=== PATIENT | female | born 1935 | race Caucasian/White ===

== ENCOUNTER → 2019-08-08 09:28 | Outpatient (CLI) | payer OTHER, SELFPAY ==
[2019-08-08 10:26] LABS: Add Manual Diff / Slide Review NO; Basophils Absolute Auto 100 /uL (0-100); Basophils Percent Auto 1.2 % (0-2); Eosinophils Absolute Auto 200 /uL (0-450); Eosinophils Percent Auto 3.1 % (2-4); Hematocrit 39.9 % (36-46); Hemoglobin 13.9 g/dL (12.0-16.0); Lymphocytes Absolute Auto 1500 /uL (1100-4500); Lymphocytes Percent Auto 22.5 % (25-40); Mean Corpuscular HGB Conc 34.8 % (30-36); Mean Corpuscular Hemoglobin 31.3 PG (26-34); Monocytes Absolute Auto 600 /uL (0-900); Monocytes Percent Auto 8.7 % (3-14); Neutrophils Absolute Auto 4300 /uL (1500-7000); Neutrophils Percent Auto 64.5 % (50-75); Platelet Count 186 X10^3/uL (150-400); Red Blood Cell Count 4.43 X10^6/uL (4.0-5.2); Red Cell Distribution Width 13.7 % (11.6-14.8); White Blood Cell Count 6.7 X10^3/uL (4.5-11.0)
[2019-08-08 11:04] LABS: Alanine Aminotransferase 34 IU/L (9-52); Albumin 4.3 g/dL (3.5-5.0); Albumin Globulin Ratio 1.5 (1.0-2.8); Alkaline Phosphatase 93 U/L (38-126); Aspartate Aminotransferase 31 IU/L (14-36); Bilirubin Total 0.6 mg/dL (0.2-1.3); Blood Urea Nitrogen 18 mg/dL (7-17); Calcium 9.5 mg/dL (8.4-10.2); Carbon Dioxide 31 mmol/L (22-32); Chloride 104 mmol/L (98-107); Cholesterol 160 mg/dL (140-199); Estimated Glomerular Filt Rate > 60.0 mL/min (>60); Globulin 2.9 g/dL (1.7-4.1); Glucose 106 mg/dL (80-110); HDL Cholesterol 72 mg/dL (40-60); HEMOLYSIS < 15 (0-50); LDL Cholesterol Calculated 74 mg/dL (<100); Potassium 4.5 mmol/L (3.4-5.1); Sodium 142 mmol/L (137-145); Total Protein 7.2 g/dL (6.3-8.2); Triglycerides 68 mg/dL (35-150)
[2019-08-08 11:36] LABS: Thyroid Stimulating Hormone 2.82 uIU/mL (0.47-4.68)
[2019-08-08 13:26] LABS: Appearance Urine UA CLEAR; Bilirubin Urine UA NEGATIVE (NEGATIVE); Color Urine UA YELLOW; Glucose Urine UA NEGATIVE (Negative); Ketones Urine UA NEGATIVE (NEGATIVE); Leukocyte Esterase Urine UA 3+ (NEGATIVE); Nitrite Urine UA NEGATIVE (Negative); Occult Blood Urine UA TRACE-LYSED (Negative); Protein Urine UA NEGATIVE (Negative); Specific Gravity Urine UA <=1.005 (1.000-1.035); Urobilinogen Urine UA 0.2 E.U./dL (0.2)
[2019-08-08 13:28] LABS: pH Urine UA 6.5 (4.5-8.0)
[2019-08-08 13:29] LABS: Bacteria Urine None Seen
[2019-08-08 13:32] LABS: Culture Indicated Urine Specimen Cultured; RBC Urine 1-5/HPF (0-5/HPF); WBC Urine 5-10/HPF (0-5/HPF)
== END ==
PROVIDERS: PCP Family Medicine; Visit Provider Family Medicine
DX: E78.5 Hyperlipidemia, unspecified (principal); I10 Essential (primary) hypertension; R53.83 Other fatigue; Z51.81 Encounter for therapeutic drug level monitoring
CPT/HCPCS: 36415; 80053; 80061; 81003; 81015; 84443; 85025; 87086

== ENCOUNTER → 2019-12-02 12:43 | Outpatient (CLI) | payer OTHER, SELFPAY ==
--- NOTE | 2019-12-02 12:44 | DI.MRI.S_ITS ---
PROCEDURE: MR HEAD/BRAIN WO CON INDICATIONS: possible TIA TECHNIQUE: Non-contrast axial T1 spin echo, axial T2 fast spin echo, sagittal and axial FLAIR, coronal T2 fast spin echo, axial gradient echo, axial diffusion and ADC through the brain. COMPARISON: None. FINDINGS: Image quality: Excellent. CSF spaces: Ventricles appear symmetric in size and shape. Basal cisterns are patent. No extra-axial fluid collections. Brain: No intracranial bleeds or mass effects. There is cerebral volume loss for age. There are periventricular and deep white matter chronic small vessel ischemic changes. Brainstem appears normal. Diffusion-weighted images show no acute ischemic insults. No chronic ischemic insults. Normal intravascular flow voids are present. Skull and face: Calvarial bone marrow is normal in signal. Orbits are normal. Sinuses: Sinuses and mastoids are clear. IMPRESSION: No evidence of acute ischemia No acute intracranial signal changes. Dictated by: Matty Lowry M.D. on 12/02/2019 at 13:39 Approved by: Matty Lowry M.D. on 12/02/2019 at 13:43
== END ==
PROVIDERS: PCP Family Medicine; Visit Provider Family Medicine
DX: R42 Dizziness and giddiness (principal); R26.81 Unsteadiness on feet; H93.19 Tinnitus, unspecified ear; I10 Essential (primary) hypertension
CPT/HCPCS: 70551; 93005; 93010

== ENCOUNTER → 2019-12-08 11:01 | Outpatient (CLI) | payer OTHER, SELFPAY ==
--- NOTE | 2019-12-08 11:05 | DI.US.S_ITS ---
PROCEDURE: US CAROTID DOPPLER BI INDICATIONS: POSSIBLE TIA TECHNIQUE: Color and pulse Doppler interrogation was performed of both carotid systems, with image documentation and velocity measurements. COMPARISON: None. FINDINGS: Stenosis calculations are based on SRU (Society of Radiologists in Ultrasound) criteria. Right side: Brachial blood pressure: 172/71 mm Hg. Common carotid artery peak systolic velocity: 91 cm/sec. Internal carotid artery peak systolic velocity: 84 cm/sec. Internal carotid artery end diastolic velocity: 87 cm/sec. External carotid artery peak systolic velocity: 90 cm/sec. ICA/CCA peak systolic ratio: 1.0. Ayon scale imaging description: No vessel occlusion. Atherosclerotic plaque noted in the imaged portions of the common carotid artery, proximal internal carotid artery, and proximal external carotid artery. There is less than 50% diameter reducing plaque. Percent internal carotid artery stenosis: Less than 50% stenosis. Vertebral artery: Flow direction is antegrade. Left side: Brachial blood pressure: 172/74 mm Hg. Common carotid artery peak systolic velocity: 94 cm/sec. Internal carotid artery peak systolic velocity: 104 cm/sec. Internal carotid artery end diastolic velocity: 117 cm/sec. External carotid artery peak systolic velocity: 110 cm/sec. ICA/CCA peak systolic ratio: 1.2. Ayon scale imaging description: No vessel occlusion. Moderate atherosclerotic plaque disease involving the imaged portions of the common carotid artery, distal internal carotid artery, and proximal external carotid artery. Less than 50% reduction of the luminal diameter. Percent internal carotid artery stenosis: Less than 50% stenosis.. Vertebral artery: Flow direction is antegrade. 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 Dictated by: David Cardoza M.D. on 12/08/2019 at 22:26 Approved by: David Cardoza M.D. on 12/08/2019 at 22:31
== END ==
PROVIDERS: PCP Family Medicine; Visit Provider Family Medicine
DX: I65.23 Occlusion and stenosis of bilateral carotid arteries (principal); H93.19 Tinnitus, unspecified ear; I10 Essential (primary) hypertension; R26.81 Unsteadiness on feet; R42 Dizziness and giddiness
CPT/HCPCS: 93880

== ENCOUNTER → 2020-02-03 13:41 | Outpatient (CLI) | payer OTHER, SELFPAY ==
--- NOTE | 2020-02-03 13:43 | DI.ECHO.S_ITS ---
[facility] +---------+ : : [address] [place] : : : : [id number] : : : : Phone: [phone]+ Echocardiogram Report + + :Name: BETY ROBINS Study Date: 02/03/2020 Height: 65 in : :[facility] Weight: 165 lb : : Gender: Female BSA: 1.8 m2 : :: 1935 Age: 84 yrs BP: 190/80 mmHg: :Reason For Study: ABNL EKG : : Performed By: Jah Wright : :Referring: YG DALEY : + + Interpretation Summary The left ventricle is normal in size. The ejection fraction is estimated to be 60-65%. The right ventricle is normal in size and function. There is mild mitral regurgitation. Procedure: A two-dimensional transthoracic echocardiogram with color flow and Doppler was performed. The study quality was technically adequate. There is no prior echocardiogram noted for this patient. The patient was in normal sinus rhythm during the exam. Left Ventricle: The left ventricle is normal in size. There is normal left ventricular wall thickness. There is no thrombus. The ejection fraction is estimated to be 60-65%. There are no focal wall motion abnormalities. MV E/A: 0.93 Med Peak E' Rojas: 5.9 cm/sec E/E' med: 15.6. Right Ventricle: The right ventricle is normal in size and function. Atria: The left atrium is mildly dilated. Right atrial size is normal. The interatrial septum is intact with no evidence for an atrial septal defect. Mitral Valve: The mitral valve leaflets are slightly calcified. There is mild mitral regurgitation. Aortic Valve: The aortic valve is not well visualized. The aortic valve opens well. There is no aortic valve stenosis. No aortic regurgitation is present. Tricuspid Valve: The tricuspid valve is normal. There is trace tricuspid regurgitation. Pulmonary artery pressures cannot be estimated because of the lack of a measurable TR jet velocity. Pulmonic Valve: The pulmonic valve is not well seen, but is grossly normal. There is no pulmonic valvular regurgitation. Great Vessels: The aortic root is normal size. The dimensions of the ascending aorta are normal. The pulmonary artery is normal size. The IVC is of normal diameter and collapses greater than 50% with a sniff. This suggests a low right atrial pressure of 3 mm Hg. Pericardium/ Pleura There is no pericardial effusion. There is an anterior echo-free space consistent with a fat pad. There is no pleural effusion. MMode/2D Measurements & Calculations LVIDd: 5.3 cm LVOT diam: 2.0 cm LVIDs: 3.0 cm Ao root diam: 2.6 cm FS: 42.5 % Aortic Jxn: 1.8 cm EPSS: 0.45 cm asc Aorta Diam: 3.0 cm IVSd: 0.78 cm LVPWd: 0.83 cm LV stinson. diameter/BSA (cm/m^2): 2.9 LV sys. diameter/BSA (cm/m^2): 1.7 LA dimension: 4.1 cm RA long axis: 4.4 cm LA A2 area: 23.0 cm2 RA area: 14.8 cm2 LA A4 area: 16.4 cm2 RA vol: 42.4 ml LA length (vol): 4.9 cm RA : 23.2 ml/m2 LA vol: 65.9 ml IVC diam: 1.2 cm LA vol index: 36.1 ml/m2 Doppler Measurements & Calculations Ao V2 max: 164.6 cm/sec LVOT Max Rojas: 129.1 cm/sec Ao V2 mean: 119.1 cm/sec LV V1 max P.7 mmHg Ao max P.8 mmHg LV V1 VTI: 31.1 cm Ao mean P.1 mmHg BROOKE(I,D): 2.2 cm2 Ao V2 VTI: 43.7 cm BROOKE(V,D): 2.4 cm2 sev ratio: 0.71 BROOKE indexed to BSA (cm^2/m^2): 1.2 MV E max rojas: 91.8 cm/sec PA V2 max: 80.4 cm/sec MV A max rojas: 98.2 cm/sec PA V2 mean: 61.5 cm/sec MV E/A: 0.93 PA mean P.6 mmHg Med Peak E' Rojas: 5.9 cm/sec PA pr(Accel): 37.0 mmHg E/E' med: 15.6 Lat Peak E' Rojas: 6.3 cm/sec E/E' lat: 14.5 E/e' average: 15.0 MV dec time: 0.19 sec SV(LVOT): 95.1 ml Reading Physician:04:37 PM
== END ==
PROVIDERS: PCP Family Medicine; Referring Provider Family Medicine; Visit Provider Family Medicine
DX: I34.0 Nonrheumatic mitral (valve) insufficiency (principal); R94.31 Abnormal electrocardiogram [ECG] [EKG]; R00.1 Bradycardia, unspecified; R42 Dizziness and giddiness; R26.81 Unsteadiness on feet; I10 Essential (primary) hypertension
CPT/HCPCS: 93306

== ENCOUNTER → 2020-05-05 15:03 | Outpatient (CLI) | payer OTHER, SELFPAY ==
[2020-05-06 10:17] LABS: COVID19 Sendout Not Detected (Not Detect)
== END ==
PROVIDERS: PCP Family Medicine; Visit Provider Physician Assistant
DX: Z11.59 Encounter for screening for other viral diseases (principal)
CPT/HCPCS: 87635

== ENCOUNTER 2020-05-08 11:55 | Day surgery (SDC) | payer OTHER, SELFPAY ==
[2020-05-08] MEDS: PROPARACAINE 0.5% OPHTH SOL 2 DROPS EYE-OP (13:00)
[2020-05-08] MEDS: CATARACT EYE COMPOUND (10 DROPS/SYRINGE) 3 DROPS EYE-OP (13:05)
[2020-05-08 13:09] VITALS: BP 195/93; PULSE 72; RESP 20; TEMP 36.6; O2SAT 97
--- NOTE | 2020-05-08 13:58 | P.OP_ITS ---
Operative Date/Time/Diagnoses Pre-op diagnosis: Nuclear Cataract Left eye Post-op diagnosis: same Procedure & Clinicians Same procedure as scheduled: Yes Surgeon: Parrish Leal Anesthesia Type: MAC +/- and Sedation Operative Notes Procedure in detail: Patient brought to the operating suite. Tetracaine drops placed in the left eye. Patient was prepped and draped in sterile manner. Wire lid speculum was placed in the eye. Betadine drops were placed on the eye. This was irrigated. Lidocaine jelly was placed on the eye. A paracentesis port was created with a side-port blade. 0.1 mL 1% preservative free lidocaine was injected into the anterior chamber. The anterior chamber was deepened with viscoelastic. 2.6 mm keratome was used to create a temporal clear corneal incision. Cystotome and Utrata forceps were used to create continuous tear capsulorrhexis. Balanced salt solution was used to hydro dissect the nucleus. The phacoemulsification handpiece was inserted and the nucleus was removed using the stop and chop technique. The irrigation aspiration handpiece was inserted and the remaining cortex was removed. Anterior chamber was deepened with viscoe lastic. An Beltre ZCB00 intraocular lens with a power of 23.0 was injected into the capsular bag. Irrigation aspiration handpiece was inserted and the remaining viscoelastic was removed. Incision was hydrated with balanced salt solution and found to be leak free with pressure with Weck-Edna sponges. 0.1 mL Vigamox injected anterior chamber. 0.3 mL Kenalog 10 mg was injected subconjunctivally. Lid speculum was removed. The patient left the operating room in excellent condition. Complications: none Post-operative Condition: stable Disposition: same day surgery
--- NOTE | 2020-05-08 13:58 | PM.PREOP ---
Pre-operative Note Interval Note History & Physical reviewed/Exam performed by Physician: Yes Changes to H&P: No
[2020-05-08] MEDS: MOXIFLOXACIN INJ 5 MG/ML VIAL EYE-OP (14:15)
[2020-05-08] MEDS: CHONDROIDTIN/SOD HYALURONATE 1.05 ML SYRINGE INTRAOCULA (14:15)
[2020-05-08] MEDS: LIDOCAINE JELLY 2% 5 ML 1 APPLIC TOP (14:15)
[2020-05-08] MEDS: TETRACAINE 0.5% OPHTH DROPS 4 ML 2 DROPS EYE-OP (14:16)
[2020-05-08] MEDS: BALANCED SALT IRRIG SOLN NO.2 500 ML, EPINEPHrine 1 MG IRR (14:16)
[2020-05-08] MEDS: PHENYLEPHRINE/LIDOCAINE VIAL (OR) 0.2 ML EYE-OP (14:16)
[2020-05-08] MEDS: TRIAMCINOLONE 50 MG/5 ML VIAL INJ (14:16)
[2020-05-08 14:39] VITALS: BP 162/83; PULSE 73; RESP 16; TEMP 36.6; O2SAT 99
== END 2020-05-08 15:01 | disposition home or self-care (01) ==
PROVIDERS: PCP Family Medicine; Referring Provider Ophthalmology; Visit Provider Ophthalmology
PROC: (CPT 66984; principal; 2020-05-08 13:45)
DX: H25.12 Age-related nuclear cataract, left eye (principal); I10 Essential (primary) hypertension; I50.9 Heart failure, unspecified; Z86.73 Personal history of transient ischemic attack (TIA), and cerebral infarction without residual deficits
CPT/HCPCS: 66984; J0171; J2250; J3010; J3301

== ENCOUNTER → 2020-05-19 15:23 | Outpatient (CLI) | payer OTHER, SELFPAY ==
[2020-05-20 17:55] LABS: COVID19 Sendout Not Detected (Not Detect)
== END ==
PROVIDERS: PCP Family Medicine; Visit Provider Physician Assistant
DX: Z01.812 Encounter for preprocedural laboratory examination (principal)
CPT/HCPCS: 87635

== ENCOUNTER 2020-05-22 10:59 | Day surgery (SDC) | payer OTHER, SELFPAY ==
[2020-05-22] MEDS: PROPARACAINE 0.5% OPHTH SOL 2 DROPS EYE-OP (11:22)
[2020-05-22] MEDS: CATARACT EYE COMPOUND (10 DROPS/SYRINGE) 3 DROPS EYE-OP (11:23)
[2020-05-22 11:25] VITALS: BP 178/79; PULSE 73; RESP 24; TEMP 36.1; O2SAT 94; BMI 27.9
--- NOTE | 2020-05-22 12:11 | PM.PREOP ---
Pre-operative Note Interval Note History & Physical reviewed/Exam performed by Physician: Yes Changes to H&P: No
--- NOTE | 2020-05-22 12:11 | PM.OP.1 ---
Operative Date/Time/Diagnoses Pre-op diagnosis: Nuclear cataract right eye Procedure & Clinicians Procedure: Cataract Surgery Same procedure as scheduled: Yes Surgeon: Parrish Leal Anesthesia Type: MAC +/- and Sedation Operative Notes Procedure in detail: Patient brought to the operating suite. Tetracaine drops placed in the right eye. Patient was prepped and draped in sterile manner. Wire lid speculum was placed in the eye. Betadine drops were placed on the eye. This was irrigated. Lidocaine jelly was placed on the eye. A paracentesis port was created with a side-port blade. 0.1 mL 1% preservative free lidocaine was injected into the anterior chamber. The anterior chamber was deepened with viscoelastic. 2.6 mm keratome was used to create a temporal clear corneal incision. Cystotome and Utrata forceps were used to create continuous tear capsulorrhexis. Balanced salt solution was used to hydro dissect the nucleus. The phacoemulsification handpiece was inserted and the nucleus was removed using the stop and chop technique. The irrigation aspiration handpiece was inserted and the remaining cortex was removed. Anterior chamber was deepened with viscoelastic. An Beltre ZCB00 intraocular lens with a power of 23.0 was injected into the capsular bag. Irrigation aspiration handpiece was inserted and the remaining viscoelastic was removed. Incision was hydrated with balanced salt solution and found to be leak free with pressure with Weck-Edna sponges. 0.1 mL Vigamox injected anterior chamber. 0.3 mL Kenalog 10 mg was injected subconjunctivally. Lid speculum was removed. The patient left the operating room in excellent condition. Complications: none Post-operative Condition: stable Disposition: same day surgery
[2020-05-22] MEDS: CHONDROIDTIN/SOD HYALURONATE 1.05 ML SYRINGE INTRAOCULA (12:32)
[2020-05-22] MEDS: LIDOCAINE JELLY 2% 5 ML 1 APPLIC TOP (12:32)
[2020-05-22] MEDS: PHENYLEPHRINE/LIDOCAINE VIAL (OR) 0.2 ML EYE-OP (12:33)
[2020-05-22] MEDS: MOXIFLOXACIN INJ 5 MG/ML VIAL EYE-OP (12:33)
[2020-05-22] MEDS: TRIAMCINOLONE 50 MG/5 ML VIAL INJ (12:33)
[2020-05-22] MEDS: TETRACAINE 0.5% OPHTH DROPS 4 ML 2 DROPS EYE-OP (12:33)
[2020-05-22] MEDS: BALANCED SALT IRRIG SOLN NO.2 500 ML, EPINEPHrine 1 MG IRR (12:34)
[2020-05-22 12:49] VITALS: BP 183/84; PULSE 66; RESP 16; TEMP 36.7; O2SAT 99
--- NOTE | 2020-05-22 13:03 | SUR.PHASEII ---
Pt ready to go. Daughter called for apple picking supervisor, message left.
--- NOTE | 2020-05-22 13:23 | SUR.PHASEII ---
Aiyana pt's transfer driver returned call, pt left unit in stable condition.
== END 2020-05-22 13:23 | disposition home or self-care (01) ==
PROVIDERS: PCP Family Medicine; Referring Provider Ophthalmology; Visit Provider Ophthalmology
PROC: (CPT 66984; principal; 2020-05-22 12:45)
DX: H25.11 Age-related nuclear cataract, right eye (principal); I10 Essential (primary) hypertension
CPT/HCPCS: 66984; J0171; J2250; J3010; J3301

== ENCOUNTER 2020-08-05 10:31 | Emergency (ER) | payer OTHER, SELFPAY ==
[2020-08-05] VITALS (12 sets, daily range): BP systolic 143–220; BP diastolic 64–96; PULSE 59–106; RESP 12–23; TEMP 36.6; O2SAT 87–98; BMI 26.9
--- NOTE | 2020-08-05 11:31 | DI.US.S_ITS ---
PROCEDURE: US PERIPH VENOUS LOW EXTREM LT INDICATIONS: EDEMA, PAIN TECHNIQUE: Real-time imaging, as well as color and pulse Doppler interrogation, were performed of the lower extremity deep veins from the inguinal ligament to the popliteal fossa. COMPARISON: None. FINDINGS: The common femoral, femoral and popliteal veins are normally compressible, and free of intraluminal thrombus. Color and pulse Doppler demonstrate normal phasic intraluminal flow. There is normal augmentation response to distal compression maneuver. A complex Chavez's cyst is seen that measures 4.4 x 1.2 x 2.4 cm. IMPRESSION: Negative for deep venous thrombosis. Dictated by: Alexander Allen M.D. on 08/05/2020 at 11:01 Approved by: Alexander Allen M.D. on 08/05/2020 at 11:01
--- NOTE | 2020-08-05 11:55 | ED.LOWEXIN ---
HPI - Extremity Injury (Lower) <Kavon HouseMarvinAlfredorubi [facility] - Last Filed: 08/05/20 17:40> General Chief Complaint: Extremity Injury, Lower Stated Complaint: L leg pain x 3 days Time Seen by Provider: 08/05/20 11:31 Source: patient and EMS Mode of arrival: EMS Limitations: no limitations and physical limitation History of Present Illness HPI Narrative: This is a 84-year-old female, former smoker, who presents to ED with nontraumatic left leg pain for least 3-4 days. Patient reports difficult time standing and bear weight on affected leg due to pain and has been getting worse. Patient denies fever, chills, nausea or vomiting. She denies history of DVT, recent surgery, prolonged bed rest. She denies warmth, redness, swelling to affected leg. She reports intact sensation. She takes baby aspirin daily. Patient denies chest pain or dyspnea. She lives at a independent living facility and reports difficulty getting around since she can walk from the leg pain. Related Data Home Medications Medication Instructions Recorded Confirmed aspirin [Aspirin Childrens] 1 tab PO DAILY 05/22/20 05/22/20 Previous Rx's Medication Instructions Recorded amlodipine 10 mg tablet 10 mg PO DAILY #90 tab 05/28/20 atenolol 25 mg tablet 25 mg PO DAILY #90 tab 05/28/20 atorvastatin 20 mg tablet 20 mg PO DAILY #90 tab 05/28/20 lisinopril 40 mg tablet 40 mg PO DAILY #90 tab 05/28/20 Allergies Allergy/AdvReac Type Severity Reaction Status Date / Time No Known Drug Allergies Allergy Verified 05/22/20 11:19 Review of Systems <Kavon Castorena [facility] - Last Filed: 08/05/20 17:40> Review of Systems Narrative: General: Denies fever, chills, fatigue, malaise, sweats. HEENT: Denies sinus pain, ear pain, sore throat, difficulty swallowing, dizziness. Respiratory: Denies dyspnea, cough, wheezing, hemoptysis, sputum. Cardiovascular: Denies chest pain, palpitations, orthopnea, edema. Gastrointestinal: Denies nausea, vomiting, abdominal pain, diarrhea, constipation, melena, (+) decreased appetite. : Denies dysuria, frequency, incontinence, hematuria, urinary retention. Musculoskeletal: See HPI Skin: Denies rash, skin lesions, or other. Neurologic: Denies weakness, headache, numbness, change in speech, confusion, seizures, incoordination. Psychiatric: No concerning psychosocial issues. 12-point review of systems is negative except for those stated above. Patient History <JUSTINE Salazar - Last Filed: 08/05/20 17:40> Medical History Borderline hyperlipidemia (Chronic) CHF (congestive heart failure) (Acute) Hypertension (Chronic) Surgical History Anesthesia (Resolved) History of hysterectomy (Resolved ~1984) S/P arthroscopic surgery of right knee (Resolved) Social History household members: none and other Smoking Status: Former smoker Tobacco: How many years used: 10 alcohol intake: never Smoking Status: Former smoker alcohol intake frequency: other Substance Use Type: does not use Exam <JUSTINE Salazar - Last Filed: 08/05/20 17:40> Narrative Exam Narrative: GEN: Alert, oriented x 3, well appearing and nourished, and in no acute distress. Head: Normal cephalic, atraumatic. No scalp or temporal tenderness, palpable mass or rash. EYES: Pupils are equal, round, and reactive to light and accommodation. Extraocular muscles are intact bilaterally. There is no subconjunctival hemorrhage, exudate and sclera non-icteric. ENT: Hearing grossly intact. Nose without bleeding, purulent discharge or deviation. Mucous membrane moist, no mucosal lesion. Throat without erythema, tonsillar hypertrophy or exudate. Uvula in midline, airway patent. Neck: Trachea in midline. No JVD, non-tender without lymphadenopathy. No masses or thyroid megaly. Supple, non-tender and no meningeal signs. CARDIAC: Normal regular rate and rhythm without murmurs, gallops, or rubs. No chest wall tenderness. No peripheral edema, cyanosis or pallor. Capillary refill is less than 2 seconds. RESPIRATORY: Lungs are clear to auscultate bilaterally. No cough, wheezes, rales, or rhonchi. No stridor, respiratory distress, increase work of breathing, or accessary muscle used. ABD: Abdomen soft, nontender and non-distended. No guarding or rebound tenderness to palpate. Bowel sounds are normal in all 4 quadrants. There is no palpable masses or organomegaly. EXT: Full painless ROM of all extremities with no loss of sensation, strength, effusion or edema. SKIN: Warm, dry, normal color for patient. No erythema, lesions or rash over visible areas. BACK: Nontender without deformity or crepitance. No flank tenderness. NEUROLOGICAL: Alert and oriented to place, time and person. Sensation and motor function intact bilaterally. No facial droops, dysphasia. PSYCHIATRIC: Good judgement and reason, without hallucinations, abnormal affect or abnormal behaviors during the examination. Patient is not suicidal. Initial Vital Signs Initial Vital Signs: Vital Signs Temperature 98 F 08/05/20 10:30 Pulse Rate 67 08/05/20 10:30 Respiratory Rate 18 08/05/20 10:30 Blood Pressure 182/79 H 08/05/20 10:30 Pulse Oximetry 98 08/05/20 10:30 Extrem Left lower extremity: knee Details: tenderness, swelling Location: of the patella and abnormal ROM Details: pain with active ROM and pain with passive ROM; no ecchymosis, no deformity and no unusual warmth <Sejal Nickerson DO - Last Filed: 08/06/20 07:33> Initial Vital Signs Initial Vital Signs: Vital Signs Temperature 98 F 08/05/20 10:30 Pulse Rate 67 08/05/20 10:30 Respiratory Rate 18 08/05/20 10:30 Blood Pressure 182/79 H 08/05/20 10:30 Pulse Oximetry 98 08/05/20 10:30 Scores <JUSTINE Salazar - Last Filed: 08/05/20 17:40> GCS Colt coma scale eye opening: Spontaneous [place] coma scale verbal response: Orientated [place] coma scale motor response: Obey commands Colt coma scale total score: 15 Wells' Criteria for DVT Active Cancer (Treatment within 6 months): No Bedridden recently >3 days or major surgery within 4 weeks: No Calf Swelling >3cm compared to other leg: No Collateral (nonvericose) superficial veins present: Yes Entire leg swollen: No Localized tenderness along the deep vein system: No Pitting edema, confined to symtomatic leg: No Paralysis, paresis, or recent plaster immobilization of ext: No Previously documented DVT: No Alternative dx to DVT as likely or more likely: No Wells' criteria for DVT: 1 Course <JUSTINE Salazar - Last Filed: 08/05/20 17:40> Orders Ordered: Discontinued Medications Acetaminophen (Tylenol) 650 mg PO NOW ONE Stop: 08/05/20 12:06 Last Admin: 08/05/20 12:50 Dose: 650 mg Documented by: ZBIGNIEW Ibuprofen (Advil) 400 mg PO NOW ONE Stop: 08/05/20 12:06 Last Admin: 08/05/20 12:50 Dose: 400 mg Documented by: ZBIGNIEW Vital Signs Vital signs: Vital Signs - 8 hr 08/05/20 10:30 08/05/20 10:41 08/05/20 11:00 Temperature 98 F Pulse Rate 67 75 70 Respiratory Rate 18 20 Blood Pressure 182/79 H Pulse Oximetry 98 96 97 08/05/20 11:08 08/05/20 11:30 08/05/20 11:31 Temperature Pulse Rate 63 61 59 L Respiratory Rate 18 20 Blood Pressure 146/67 H 143/64 H Pulse Oximetry 97 96 96 08/05/20 12:00 08/05/20 12:30 08/05/20 13:00 Temperature Pulse Rate 62 65 106 H Respiratory Rate 18 12 19 Blood Pressure 156/67 H 160/69 H Pulse Oximetry 97 97 87 L 08/05/20 13:02 08/05/20 13:30 08/05/20 13:31 Temperature Pulse Rate 81 76 73 Respiratory Rate 19 20 23 Blood Pressure 220/96 H 185/80 H Pulse Oximetry 96 97 97 <Sejal Nickerson DO - Last Filed: 08/06/20 07:33> Orders Ordered: Discontinued Medications Acetaminophen (Tylenol) 650 mg PO NOW ONE Stop: 08/05/20 12:06 Last Admin: 08/05/20 12:50 Dose: 650 mg Documented by: ZBIGNIEW Ibuprofen (Advil) 400 mg PO NOW ONE Stop: 08/05/20 12:06 Last Admin: 08/05/20 12:50 Dose: 400 mg Documented by: ZBIGNIEW Vital Signs Vital signs: Vital Signs - 8 hr 08/05/20 10:30 08/05/20 10:41 09/27/20 11:00 Temperature 98 F Pulse Rate 67 75 70 Respiratory Rate 18 20 Blood Pressure 182/79 H Pulse Oximetry 98 96 97 08/05/20 11:08 08/05/20 11:30 08/05/20 11:31 Temperature Pulse Rate 63 61 59 L Respiratory Rate 18 20 Blood Pressure 146/67 H 143/64 H Pulse Oximetry 97 96 96 08/05/20 12:00 08/05/20 12:30 08/05/20 13:00 Temperature Pulse Rate 62 65 106 H Respiratory Rate 18 12 19 Blood Pressure 156/67 H 160/69 H Pulse Oximetry 97 97 87 L 08/05/20 13:02 08/05/20 13:30 08/05/20 13:31 Temperature Pulse Rate 81 76 73 Respiratory Rate 19 20 23 Blood Pressure 220/96 H 185/80 H Pulse Oximetry 96 97 97 MDM - Extremity Injury (Lower) <JUSTINE Salazar - Last Filed: 08/05/20 17:40> Differential Diagnosis Differential diagnosis: Likely ankle sprain and strain, ankle fracture and other (DVT) Medical Records Attestation: I reviewed the patient's medical records. Imaging Data XR-Knee LT: Radiologist's Impression: [address] [address] XRay Report Signed Patient: Josefina Rodriguez LMR#: [id number] : [id number]:[id number] Age/Sex: 84 / FDate of Service: 08/05/20 Loc: ED Accession Number: [id number] Procedure: XR knee LT 3V Ordering Provider: Kavon Castorena PROCEDURE: XR KNEE LT 3V INDICATIONS: left knee pain no trauma TECHNIQUE: 3 views of the knee were acquired. COMPARISON: [facility], , ECHO DOPPLER COMPLETE, 02/03/2020, 14:00. [facility], , US PERIPH VENOUS LOW EXTREM LT, 08/05/2020, 11:43. FINDINGS: Bones: No fractures or dislocations. No suspicious bony lesions. There is mild medial femorotibial joint space narrowing seen, with associated remodeling changes including subchondral sclerosis and osteophyte formation along the jointline. On the sunrise view, there is mild lateral patellofemoral joint space narrowing seen. Osteophyte formation can be seen along the margins of the patella. Soft tissues: Calcification is seen along the joint line, which is attributed to meniscal calcification. There is a moderate joint effusion. 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 There is a moderate joint effusion seen. Apparent meniscal calcification. Dictated by: Alexander Allen M.D. on 08/05/2020 at 11:35 Approved by: Alexander Allen M.D. on 08/05/2020 at 11:36 US - DVT: Radiologist's Impression: [address] [address] Ultrasound Report Signed Patient: Josefina Rodriguez LMR#: [id number] : [id number]:[id number] Age/Sex: 84 / FDate of Service: 08/05/20 Loc: ED Accession Number: [id number] Procedure: US periph venous low extrem lt Ordering Provider: Sejal Nickerson D.O. PROCEDURE: US PERIPH VENOUS LOW EXTREM LT INDICATIONS: EDEMA, PAIN TECHNIQUE: Real-time imaging, as well as color and pulse Doppler interrogation, were performed of the lower extremity deep veins from the inguinal ligament to the popliteal fossa. COMPARISON: None. FINDINGS: The common femoral, femoral and popliteal veins are normally compressible, and free of intraluminal thrombus. Color and pulse Doppler demonstrate normal phasic intraluminal flow. There is normal augmentation response to distal compression maneuver. A complex Chavez's cyst is seen that measures 4.4 x 1.2 x 2.4 cm. IMPRESSION: Negative for deep venous thrombosis. Dictated by: Alexander Allen M.D. on 08/05/2020 at 11:01 Approved by: Alexander Allen M.D. on 08/05/2020 at 11:01 [facility] Narrative Medical decision making narrative: This is a 84-year-old female presents to ED with nontraumatic left leg pain for last 3-4 days which progressively has gotten worse and limiting with ambulation and weight-bearing. Patient denies history of blood clots or prolonged bed rest. Intact sensation on left foot. Physical exam is not consistent with cellulitis. Patient reports discomfort with flexing affected leg specially around the knee posteriorly. Ultrasound test was negative for DVT but 4.4 x 1.2 x 2.4 cm size a complex Chavez's cyst in left knee. X-ray test was negative for fractures or dislocation but degenerate joint of left knee. Patient was medicated with Tylenol and Motrin while in ED for discomfort. She was assisted with walker for ambulation which she was able to take several steps. Nursing staff talked to patient's daughter and she will be staying with her daughter at this time and not returning to independent living at [facility]. Advised to follow with primary care physician and consider physical therapy and evaluation by orthopedist if pain persists. Patient verbalized understanding and agreement with the treatment plan. 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 No indications of DVT. X-ray test on left knee does not show acute findings such as fractures or dislocation.]. What to do: *Take your medications as directed. You can use [id number] Tylenol and or Motrin as needed for discomfort. *Follow up with your primary care provider in 2-3 days, call for an appointment. Let them know you were seen in the ED and that we asked you to be seen in follow up. Discuss of physical therapy for gait assessment and treatment. Please use a walker for ambulation assistance to prevent falls. If pain persists, consider orthopedist evaluation. *Return to ED if you have any new, worsening, or concerning symptoms, such as [chest pain, breathing difficulty, unable to tolerate fluids, worsening pain on her leg, or any acute concerns]. Prescriptions: No Action amlodipine 10 mg tablet 10 mg PO DAILY Qty: 90 RF: 1 atenolol 25 mg tablet 25 mg PO DAILY Qty: 90 RF: 1 atorvastatin 20 mg tablet 20 mg PO DAILY Qty: 90 RF: 1 lisinopril 40 mg tablet 40 mg PO DAILY Qty: 90 RF: 1 aspirin [Aspirin Childrens] 81 mg Tablet,Chewable 1 tab PO DAILY RF: 0 Referrals: [facility] [Provider Group] Vern Reyes DO [Primary Care Provider] - <Sejal Nickerson DO - Last Filed: 08/06/20 07:33> Cosign ED Attending Cosignature Attestation: I was immediately available in the department for consultation. Documentation has been reviewed. I agree with assessment and plan.
--- NOTE | 2020-08-05 12:05 | DI.RAD.S_ITS ---
PROCEDURE: XR KNEE LT 3V INDICATIONS: left knee pain no trauma TECHNIQUE: 3 views of the knee were acquired. COMPARISON: [facility], , ECHO DOPPLER COMPLETE, 02/03/2020, 14:00. [facility], , US PERIPH VENOUS LOW EXTREM LT, 08/05/2020, 11:43. FINDINGS: Bones: No fractures or dislocations. No suspicious bony lesions. There is mild medial femorotibial joint space narrowing seen, with associated remodeling changes including subchondral sclerosis and osteophyte formation along the jointline. On the sunrise view, there is mild lateral patellofemoral joint space narrowing seen. Osteophyte formation can be seen along the margins of the patella. Soft tissues: Calcification is seen along the joint line, which is attributed to meniscal calcification. There is a moderate joint effusion. 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 There is a moderate joint effusion seen. Apparent meniscal calcification. Dictated by: Alexander Allen M.D. on 08/05/2020 at 11:35 Approved by: Alexander Allen M.D. on 08/05/2020 at 11:36
[2020-08-05] MEDS: IBUPROFEN 400 MG TABLET PO (12:50)
[2020-08-05] MEDS: ACETAMINOPHEN 325 MG TABLET 650 MG PO (12:50)
== END 2020-08-05 14:25 | disposition home or self-care (01) ==
PROVIDERS: Emergency Provider Nurse Practitioner Family; PCP Family Medicine
DX: M71.22 Synovial cyst of popliteal space [Baker], left knee (principal); M79.605 Pain in left leg
CPT/HCPCS: 73562; 93971; 99283

== ENCOUNTER → 2021-02-06 14:36 | Outpatient (CLI) | payer MEDICARE, SELFPAY ==
[2021-02-06] MEDS: COVID-19 VACC #1, MRNA(MOD) 100 MCG/0.5 ML VIAL IM (14:50)
== END ==
PROVIDERS: PCP Family Medicine; Visit Provider Internal Medicine
DX: Z23 Encounter for immunization (principal)
CPT/HCPCS: 0011A; 91301

== ENCOUNTER → 2021-03-06 14:48 | Outpatient (CLI) | payer MEDICARE, SELFPAY ==
[2021-03-06] MEDS: COVID-19 VACC #2, MRNA(MOD) 100 MCG/0.5 ML VIAL IM (15:01)
== END ==
PROVIDERS: PCP Family Medicine; Visit Provider Internal Medicine
DX: Z23 Encounter for immunization (principal)
CPT/HCPCS: 0012A; 91301

== ENCOUNTER 2023-01-10 15:55 | Emergency (ER) | payer OTHER, SELFPAY ==
[2023-01-10] VITALS (8 sets, daily range): BP systolic 217–254; BP diastolic 92–117; PULSE 83–104; RESP 18–22; TEMP 36.7; O2SAT 95–98; BMI 27.1
--- NOTE | 2023-01-10 16:02 | DI.CT.S_ITS ---
PROCEDURE: CT ANGIO HEAD AND NECK INDICATIONS: Hypertension TECHNIQUE: Pre-contrast 4.5 mm thick sections acquired from the foramen magnum to the vertex. After the administration of intravenous contrast, 1 mm thick sections acquired from the aortic arch through the [place] of [place]. Post-contrast 4.5 mm thick sections then re-acquired from the foramen magnum to the vertex. 3-dimensional [id number]-[id number] (MIP) and/or volume rendering reformats were acquired of the central intracranial vasculature and neck separately. For radiation dose reduction, the following was used: automated exposure control, adjustment of mA and/or kV according to patient size. COMPARISON: None. FINDINGS: Image quality: Excellent. BRAIN: CSF spaces: Ventricles are normal in size and shape. Basal cisterns are patent. No extra-axial fluid collections. Brain: No midline shift. No intracranial bleeds or masses. [place]-white matter interface appears intact. Skull and face: Calvarium and facial bones appear intact, without suspicious lesions. Orbits appear normal. Sinuses: Sinuses and mastoids are clear. HEAD CT ANGIOGRAPHY: Anterior circulation: Intracranial internal carotid arteries are normal in size and flow. The flow within the paired anterior cerebral arteries is normal and symmetric. The flow within the middle cerebral arteries is normal and symmetric. The anterior communicating artery is seen. No aneurysms are seen. Posterior circulation: Visualized portions of the vertebral arteries demonstrate normal caliber, and join to form a normal appearing basilar artery. Flow within the posterior cerebral arteries is normal and symmetric. No aneurysms are seen. NECK CT ANGIOGRAPHY: Carotid system: The great vessels demonstrate a conventional anatomy as they arise from the aortic arch. The origins of the common carotid arteries appear patent. The common carotid arteries demonstrate normal caliber and courses. The bifurcation regions have atherosclerotic calcifications but are both widely patent. The internal carotid arteries demonstrate normal calibers and courses. Posterior circulation: The origins of the vertebral arteries both appear widely patent. The more superior extracranial portions of both vertebral arteries also demonstrate normal courses and calibers. They join to form a normal appearing basilar artery. Soft tissues: Visualized neck soft tissues demonstrate no suspicious abnormalities. Bones: No suspicious bony lesions. Visualized cervical spine appears normally aligned. IMPRESSION: 1. Normal CTA head. 2. Atherosclerotic calcifications of the carotid bulbs with no significant stenosis, otherwise normal CTA neck. Any quantitative measurements of stenosis were performed using NASCET criteria. Dictated by: Myron Fernández M.D. on 01/10/2023 at 15:40 Approved by: Myron Fernández M.D. on 01/10/2023 at 15:43
--- NOTE | 2023-01-10 16:02 | DI.CT.S_ITS ---
PROCEDURE: CT STROKE INDICATIONS: HTN r/o hemorrhage TECHNIQUE: Noncontrast 4.5 mm thick angled axial sections acquired from the foramen magnum to the vertex, with coronal reformats. For radiation dose reduction, the following was used: automated exposure control, adjustment of mA and/or kV according to patient size. COMPARISON: None. FINDINGS: Image quality: Excellent. CSF spaces: Basal cisterns are patent. No extra-axial fluid collections. The ventricles are symmetric in size and shape. Brain: No intracranial bleeds or masses. There is cerebral volume loss for age, with resultant ventricular and sulcal prominence. There are periventricular and deep white matter chronic small vessel ischemic changes. There is intracranial internal carotid artery atherosclerosis. Skull and face: Calvarium and visualized facial bones appear intact, without suspicious lesions. Sinuses: Visualized sinuses and mastoids are clear. IMPRESSION: 1. No acute intracranial abnormality. 2. Cerebral volume loss and small vessel ischemic changes. This study fulfills neurological imaging criteria for inclusion or exclusion of acute stroke therapies based on available published neurological guidelines. Dictated by: Myron Fernández M.D. on 01/10/2023 at 15:27 Approved by: Myron Fernández M.D. on 01/10/2023 at 15:30
--- NOTE | 2023-01-10 16:03 | DI.RAD.S_ITS ---
PROCEDURE: XR CHEST 1V INDICATIONS: stroke TECHNIQUE: One view of the chest was acquired. COMPARISON: None. FINDINGS: Surgical changes and devices: None. Lungs and pleura: Lungs are clear. No pleural effusions or pneumothorax. Mediastinum: Mediastinal contours appear normal. Heart size is normal. Bones and chest wall: No suspicious bony lesions. Overlying soft tissues appear unremarkable. IMPRESSION: No acute cardiopulmonary abnormality. Dictated by: Myron Fernández M.D. on 01/10/2023 at 15:45 Approved by: Myron Fernández M.D. on 01/10/2023 at 15:45
[2023-01-10 16:14] LABS: Add Manual Diff / Slide Review NO; Basophils Absolute Auto 100 /uL (0-100); Basophils Percent Auto 0.9 % (0-2); Eosinophils Absolute Auto 200 /uL (0-450); Hematocrit 44.2 % (36-46); Hemoglobin 15.1 g/dL (12.0-16.0); Lymphocytes Absolute Auto 1800 /uL (1100-4500); Lymphocytes Percent Auto 19.7 % (25-40); Mean Corpuscular HGB Conc 34.2 % (30-36); Mean Corpuscular Hemoglobin 30.7 PG (26-34); Mean Corpuscular Volume 89.9 fL (80-100); Monocytes Absolute Auto 700 /uL (0-900); Monocytes Percent Auto 7.1 % (3-14); Neutrophils Absolute Auto 6500 /uL (1500-7000); Neutrophils Percent Auto 70.3 % (50-75); Platelet Count 220 X10^3/uL (150-400); Red Blood Cell Count 4.92 X10^6/uL (4.0-5.2); Red Cell Distribution Width 14.7 % (11.6-14.8); White Blood Cell Count 9.2 X10^3/uL (4.5-11.0)
--- NOTE | 2023-01-10 16:18 | ED_ITS ---
HPI - Altered Mental Status General Chief Complaint: Hypertension Stated Complaint: possible stroke Time Seen by Provider: 01/10/23 16:02 History of Present Illness HPI narrative: Patient is a 87-year-old female history of hypertension congestive heart failure hyperlipidemia presenting with decreasing mental status and increasing weakness. She lives with daughter who reports that she is having a steady decline but today significant decline. She is was unable to get her off the commode. She is unable to get her in and out of the car. Yesterday she is able to walk. Patient is not necessarily cooperating with exam or questions complaining of pain all over and wanting to . She is noncompliant with her medication including her hypertension meds she is noted to be extremely hypertensive with a systolic blood pressure greater than 200. She is extremely weak requiring full assist to transfer from wheelchair to rney. She is able to lift both arms however legs seem a lot weaker. Related Data Home Medications Medication Instructions Recorded Confirmed aspirin 81 mg chewable tablet 1 tab PO DAILY 05/22/20 01/30/22 (Aspirin Childrens) Previous Rx's Medication Instructions Recorded albuterol sulfate 0.63 mg/3 mL 0.63 mg (3 mL) inhalation Q8H PRN 04/17/21 solution for nebulization shortness of breath or wheezing #75 mL nebulizer and supplies #1 ea 04/18/21 amlodipine 5 mg tablet 5 mg PO BID #180 tabs 01/30/22 lisinopril 20 mg tablet 20 mg PO BID #180 tabs 01/30/22 atorvastatin 20 mg tablet 20 mg PO BEDTIME #90 tabs 04/10/22 Allergies Allergy/AdvReac Type Severity Reaction Status Date / Time No Known Drug Allergies Allergy Verified 01/30/22 13:31 Review of Systems Review of Systems ROS Unobtainable: All systems reviewed & are unremarkable except as noted in HPI and below Patient History Medical History Borderline hyperlipidemia CHF (congestive heart failure) Hypertension Surgical History Anesthesia History of hysterectomy (~1984) S/P arthroscopic surgery of right knee Social History household members: none and other Smoking Status: Former smoker Tobacco: How many years used: 10 alcohol intake: never Smoking Status: Former smoker alcohol intake frequency: other Substance Use Type: does not use Exam Initial Vital Signs Initial Vital Signs: Vital Signs Pulse Oximetry 95 01/10/23 16:00 GENERAL: Anxious 87-year-old female HEENT: Head atraumatic,EOMI, pupils reactive, face symmetric, moist mucous membranes CARDIOVASCULAR: Regular rate and rhythm without murmurs, rubs or gallops. RESPIRATORY: Breath sounds equal bilaterally, no wheezes rales or rhonchi. ABDOMEN: Soft, nontender. Normoactive bowel sounds all 4 quadrants. No guarding or rebound. EXTREMITIES: Normal range of motion, no clubbing or edema. Neurovascularly intact NEUROLOGICAL: Alert and oriented x2. Moving upper extremities with good strength however lower extremities moving very much bilaterally SKIN: Warm, dry, no laceration, no petechiae, no rashes or lesions. Course Orders Ordered: Discontinued Medications Ondansetron HCl (Ondansetron 4 Mg/2 Ml Inj) 4 mg IV NOW ONE Stop: 01/10/23 16:04 Last Admin: 01/10/23 16:58 Dose: 4 mg Documented By: LIEN Vital Signs Vital signs: Vital Signs - 8 hr 01/10/23 16:06 01/10/23 16:00 01/10/23 16:01 Temperature 98.1 F Pulse Rate 104 H Respiratory Rate 22 Blood Pressure 217/94 H 254/117 H Pulse Oximetry 98 95 Oxygen Delivery Method Room Air 01/10/23 16:01 01/10/23 16:07 01/10/23 16:07 Temperature Pulse Rate 101 H 97 H Respiratory Rate 19 Blood Pressure 217/92 H Pulse Oximetry 96 97 Oxygen Delivery Method 01/10/23 16:30 01/10/23 17:00 Temperature Pulse Rate 101 H 85 Respiratory Rate Blood Pressure Pulse Oximetry 97 97 Oxygen Delivery Method MDM - Altered Mental Status Lab Data 01/10/23 16:05 01/10/23 16:05 Labs: Lab Results 01/10/23 01/10/23 01/10/23 Range/Units 16:05 16:05 16:05 WBC 9.2 (4.5-11.0) X10^3/uL RBC 4.92 (4.0-5.2) X10^6/uL Hgb 15.1 (12.0-16.0) g/dL Hct 44.2 (36-46) % MCV 89.9 (80-100) fL MCH 30.7 (26-34) PG MCHC 34.2 (30-36) % RDW 14.7 (11.6-14.8) % Plt Count 220 (150-400) X10^3/uL Neut % (Auto) 70.3 (50-75) % Lymph % (Auto) 19.7 L (25-40) % [place] % (Auto) 7.1 (3-14) % Eos % (Auto) 2.0 (2-4) % Baso % (Auto) 0.9 (0-2) % Neut # (Auto) 6500 (7746-2461) /uL Lymph # (Auto) 1800 (9323-8266) /uL [place] # (Auto) 700 (0-900) /uL Eos # (Auto) 200 (0-450) /uL Baso # (Auto) 100 (0-100) /uL PT 12.0 (10.1-12.7) SECONDS INR 1.0 (0.9-1.3) APTT 29 (26-36) SECONDS Sodium (137-145) mmol/L Potassium (3.4-5.1) mmol/L Chloride (98-107) mmol/L Carbon Dioxide (22-32) mmol/L BUN (7-17) mg/dL Creatinine (0.52-1.04) mg/dL Estimated GFR (>60) mL/min BUN/Creatinine Ratio (6-22) Glucose (80-110) mg/dL Lactate 1.1 (0.7-2.1) mmol/L Calcium (8.4-10.2) mg/dL Total Bilirubin (0.2-1.3) mg/dL AST (14-36) IU/L ALT (<35) IU/L Alkaline Phosphatase (38-126) U/L Total Creatine Kinase (30-135) U/L CK-MB (CK-2) CK-MB (CK-2) Rel Index Troponin I (0.01-0.034) ng/mL NT-Pro-B Natriuret Pep (<450) pg/mL Total Protein (6.3-8.2) g/dL Albumin (3.5-5.0) g/dL Globulin (1.7-4.1) g/dL Albumin/Globulin Ratio (1.0-2.8) U Opiates 300ng/mL cut (Negative) Ur Oxycodone Screen (Negative) Urine Methadone Screen (Negative) Ur Barbiturates Screen (Negative) U Tricyclic Antidepress (Negative) Ur Phencyclidine Scrn (Negative) Ur Amphetamines Screen (Negative) U Methamphetamines Scrn (Negative) Ur MDMA Scrn (Ecstasy) (Negative) U Benzodiazepines Scrn (Negative) Urine Cocaine Screen (Negative) U Marijuana (THC) Screen (Negative) SARS-CoV-2 (PCR) (Negative) Influenza A (RT-PCR) (NEGATIVE) Influenza B (RT-PCR) (NEGATIVE) RSV (PCR) (Negative) 01/10/23 01/10/23 01/10/23 Range/Units 16:05 16:05 16:38 WBC (4.5-11.0) X10^3/uL RBC (4.0-5.2) X10^6/uL Hgb (12.0-16.0) g/dL Hct (36-46) % MCV (80-100) fL MCH (26-34) PG MCHC (30-36) % RDW (11.6-14.8) % Plt Count (150-400) X10^3/uL Neut % (Auto) (50-75) % Lymph % (Auto) (25-40) % [place] % (Auto) (3-14) % Eos % (Auto) (2-4) % Baso % (Auto) (0-2) % Neut # (Auto) (7490-9570) /uL Lymph # (Auto) (5168-3912) /uL [place] # (Auto) (0-900) /uL Eos # (Auto) (0-450) /uL Baso # (Auto) (0-100) /uL PT (10.1-12.7) SECONDS INR (0.9-1.3) APTT (26-36) SECONDS Sodium 140 (137-145) mmol/L Potassium 3.8 (3.4-5.1) mmol/L Chloride 103 (98-107) mmol/L Carbon Dioxide 27 (22-32) mmol/L BUN 14 (7-17) mg/dL Creatinine 0.67 (0.52-1.04) mg/dL Estimated GFR > 60 (>60) mL/min BUN/Creatinine Ratio 20.9 (6-22) Glucose 150 H (80-110) mg/dL Lactate (0.7-2.1) mmol/L Calcium 9.2 (8.4-10.2) mg/dL Total Bilirubin 0.6 (0.2-1.3) mg/dL AST 30 (14-36) IU/L ALT 27 (<35) IU/L Alkaline Phosphatase 117 (38-126) U/L Total Creatine Kinase 36 (30-135) U/L CK-MB (CK-2) TNP CK-MB (CK-2) Rel Index TNP Troponin I < 0.012 (0.01-0.034) ng/mL NT-Pro-B Natriuret Pep 191 (<450) pg/mL Total Protein 7.9 (6.3-8.2) g/dL Albumin 4.3 (3.5-5.0) g/dL Globulin 3.6 (1.7-4.1) g/dL Albumin/Globulin Ratio 1.2 (1.0-2.8) U Opiates 300ng/mL cut Negative (Negative) Ur Oxycodone Screen Negative (Negative) Urine Methadone Screen Negative (Negative) Ur Barbiturates Screen Negative (Negative) U Tricyclic Antidepress Negative (Negative) Ur Phencyclidine Scrn Negative (Negative) Ur Amphetamines Screen Negative (Negative) U Methamphetamines Scrn Negative (Negative) Ur MDMA Scrn (Ecstasy) Negative (Negative) U Benzodiazepines Scrn Negative (Negative) Urine Cocaine Screen Negative (Negative) U Marijuana (THC) Screen Negative (Negative) SARS-CoV-2 (PCR) (Negative) Influenza A (RT-PCR) (NEGATIVE) Influenza B (RT-PCR) (NEGATIVE) RSV (PCR) (Negative) 01/10/23 Range/Units 16:38 WBC (4.5-11.0) X10^3/uL RBC (4.0-5.2) X10^6/uL Hgb (12.0-16.0) g/dL Hct (36-46) % MCV (80-100) fL MCH (26-34) PG MCHC (30-36) % RDW (11.6-14.8) % Plt Count (150-400) X10^3/uL Neut % (Auto) (50-75) % Lymph % (Auto) (25-40) % [place] % (Auto) (3-14) % Eos % (Auto) (2-4) % Baso % (Auto) (0-2) % Neut # (Auto) (4765-1617) /uL Lymph # (Auto) (4728-4113) /uL [place] # (Auto) (0-900) /uL Eos # (Auto) (0-450) /uL Baso # (Auto) (0-100) /uL PT (10.1-12.7) SECONDS INR (0.9-1.3) APTT (26-36) SECONDS Sodium (137-145) mmol/L Potassium (3.4-5.1) mmol/L Chloride (98-107) mmol/L Carbon Dioxide (22-32) mmol/L BUN (7-17) mg/dL Creatinine (0.52-1.04) mg/dL Estimated GFR (>60) mL/min BUN/Creatinine Ratio (6-22) Glucose (80-110) mg/dL Lactate (0.7-2.1) mmol/L Calcium (8.4-10.2) mg/dL Total Bilirubin (0.2-1.3) mg/dL AST (14-36) IU/L ALT (<35) IU/L Alkaline Phosphatase (38-126) U/L Total Creatine Kinase (30-135) U/L CK-MB (CK-2) CK-MB (CK-2) Rel Index Troponin I (0.01-0.034) ng/mL NT-Pro-B Natriuret Pep (<450) pg/mL Total Protein (6.3-8.2) g/dL Albumin (3.5-5.0) g/dL Globulin (1.7-4.1) g/dL Albumin/Globulin Ratio (1.0-2.8) U Opiates 300ng/mL cut (Negative) Ur Oxycodone Screen (Negative) Urine Methadone Screen (Negative) Ur Barbiturates Screen (Negative) U Tricyclic Antidepress (Negative) Ur Phencyclidine Scrn (Negative) Ur Amphetamines Screen (Negative) U Methamphetamines Scrn (Negative) Ur MDMA Scrn (Ecstasy) (Negative) U Benzodiazepines Scrn (Negative) Urine Cocaine Screen (Negative) U Marijuana (THC) Screen (Negative) SARS-CoV-2 (PCR) Negative (Negative) Influenza A (RT-PCR) Flu a negative (NEGATIVE) Influenza B (RT-PCR) Flu b negative (NEGATIVE) RSV (PCR) Negative (Negative) Point of Care Testing Glucose POC 165 Urine Dip Bedside Urine Glucose Negative Bedside Urine Bilirubin - Negative Bedside Urine Ketone - Negative Urine Specific [place] 1.010 Bedside Urine Occult Blood - Negative Bedside Urine pH 6.0 Bedside Urine Protein - Negative Bedside Urine Urobilinogen - Negative Bedside Urine Nitrite - Negative Bedside Urine Leukocytes - Negative Esterase Imaging Data CT scan - head: Radiologist's Impression: PROCEDURE:? CT STROKE ? INDICATIONS:? HTN r/o hemorrhage ? TECHNIQUE:? Noncontrast 4.5 mm thick angled axial sections acquired from the foramen magnum to the vertex, with coronal reformats.? For radiation dose reduction, the following was used:? automated exposure control, adjustment of mA and/or kV according to patient size.? ? COMPARISON:? None. ? FINDINGS:? Image quality:? Excellent.? ? CSF spaces:? Basal cisterns are patent.? No extra-axial fluid collections.? The ventricles are symmetric in size and shape.? ? Brain:? No intracranial bleeds or masses.? There is cerebral volume loss for age, with resultant ventricular and sulcal prominence.? There are periventricular and deep white matter chronic small vessel ischemic changes.? There is intracranial internal carotid artery atherosclerosis.? ? Skull and face:? Calvarium and visualized facial bones appear intact, without suspicious lesions.? ? Sinuses:? Visualized sinuses and mastoids are clear.? ? IMPRESSION:? 1. No acute intracranial abnormality. 2. Cerebral volume loss and small vessel ischemic changes.? ? ? This study fulfills neurological imaging criteria for inclusion or exclusion of acute stroke therapies based on available published neurological guidelines.? ? ? Dictated by: Myron Fernández M.D. on 01/10/2023 at 15:27 ? ? CTA - brain/neck: Radiologist's Impression: PROCEDURE:? CT ANGIO HEAD AND NECK ? INDICATIONS:? Hypertension ? TECHNIQUE:? Pre-contrast 4.5 mm thick sections acquired from the foramen magnum to the vertex.? After the administration of intravenous contrast, 1 mm thick sections acquired from the aortic arch through the [place] of [place].? Post-contrast 4.5 mm thick sections then re- acquired from the foramen magnum to the vertex.? 3-dimensional grhsydy-xxwbfithi-itocoxrtwk (MIP) and/or volume rendering reformats were acquired of the central intracranial vasculature and neck separately. For radiation dose reduction, the following was used:? a utomated exposure control, adjustment of mA and/or kV according to patient size.? ? COMPARISON:? None. ? FINDINGS:? Image quality:? Excellent.? ? BRAIN:? CSF spaces:? Ventricles are normal in size and shape.? Basal cisterns are patent.? No extra-axial fluid collections.? ? Brain:? No midline shift.? No intracranial bleeds or masses.? [place]-white matter interface appears intact.? ? Skull and face:? Calvarium and facial bones appear intact, without suspicious lesions.? Orbits appear normal.? ? Sinuses:? Sinuses and mastoids are clear.? ? HEAD CT ANGIOGRAPHY:? Anterior circulation:? Intracranial internal carotid arteries are normal in size and flow.? The flow within the paired anterior cerebral arteries is normal and symmetric.? The flow within the middle cerebral arteries is normal and symmetric.? The anterior communicating artery is seen.? No aneurysms are seen.? ? Posterior circulation:? Visualized portions of the vertebral arteries demonstrate normal caliber, and join to form a normal appearing basilar artery.? Flow within the posterior cerebral arteries is normal and symmetric.? No aneurysms are seen.? ? NECK CT ANGIOGRAPHY:? Carotid system:? The great vessels demonstrate a conventional anatomy as they arise from the aortic arch.? The origins of the common carotid arteries appear patent.? The common carotid arteries demonstrate normal caliber and courses.? The bifurcation deisi ons have atherosclerotic calcifications but are both widely patent.? The internal carotid arteries demonstrate normal calibers and courses.? ? Posterior circulation:? The origins of the vertebral arteries both appear widely patent.? The more superior extracranial portions of both vertebral arteries also demonstrate normal courses and calibers.? They join to form a normal appearing basilar artery.? ? Soft tissues:? Visualized neck soft tissues demonstrate no suspicious abnormalities.? ? Bones:? No suspicious bony lesions.? Visualized cervical spine appears normally aligned.? IMPRESSION:? 1. Normal CTA head. 2. Atherosclerotic calcifications of the carotid bulbs with no significant steno sis, otherwise normal CTA neck. ? Any quantitative measurements of stenosis were performed using NASCET criteria.? ? ? Dictated by: Myron Fernández M.D. on 01/10/2023 at 15:40 ? Chest x-ray: Radiologist's Impression: PROCEDURE:? XR CHEST 1V ? INDICATIONS:? stroke ? TECHNIQUE:? One view of the chest was acquired.? ? COMPARISON:? None. ? FINDINGS:? ? Surgical changes and devices:? None.? ? Lungs and pleura:? Lungs are clear.? No pleural effusions or pneumothorax.? ? Mediastinum:? Mediastinal contours appear normal.? Heart size is normal.? ? Bones and chest wall:? No suspicious bony lesions.? Overlying soft tissues appear unremarkable.? ? IMPRESSION:? No acute cardiopulmonary abnormality. ? ? ? Dictated by: Myron Fernández M.D. on 01/10/2023 at 15:45 ? ? ECG Data Interpretation: Sinus rhythm rate 88 possibly a PAC do not agree with computer interpretation of atrial fibrillation no ST changes similar to previous EKG in 2020 MDM Narrative Medical decision making narrative: Patient 87-year-old female she is noncompliant with her blood pressure medications presenting today with anxiety and weakness. Daughter not sure what to do with her. No real evidence of heat stroke initially was concerned with severe hypertension noncompliant headache leg weakness for possible intracranial hemorrhage. However head CT is negative along with CT angio. Blood work does not show any evidence of end-organ damage or infection. She ambulated to the restroom with a walker without any assistance. developmental services worker in 2 S patient and family needs. Family has an intake appointment with hospice already. Patient would like to go home at this time I do not have admitting diagnosis or reason so this is reasonable. Discharge Plan Departure Patient Disposition: Home Clinical Impression: Hypertension Instructions: DI for High Blood Pressure Activity Restrictions/Additional Instructions: *You have been diagnosed with high blood pressure *What to do: It is recommended that you take your blood pressure medication so you do not have stroke or heart attack. Please see hospice at your scheduled appointment. Use walker as needed *Continue to take medications as directed *Follow up with your primary care provider in 2-3 days or call [phone] *Return to ER if you should have increasing weakness confusion does or any new, worsening or concerning symptoms Prescriptions: No Action (DME) nebulizer and supplies See Rx Instructions .Route .MEDSUPPLY Qty: 1 0RF Rx Instructions: As directed atorvastatin 20 mg tablet 20 mg PO BEDTIME Qty: 90 3RF albuterol sulfate 0.63 mg/3 mL solution for nebulization 0.63 mg inhalation Q8H PRN (Reason: shortness of breath or wheezing) Qty: 75 0RF amlodipine 5 mg tablet 5 mg PO BID Qty: 180 3RF lisinopril 20 mg tablet 20 mg PO BID Qty: 180 3RF aspirin [Aspirin Childrens] 81 mg Tablet,Chewable 1 tab PO DAILY Referrals: Vern Reyes DO [Primary Care Provider] - Stand Alone Forms: Patient Portal/API
[2023-01-10 16:36] LABS: PTT Partial Thromboplastin Tim 29 SECONDS (26-36)
[2023-01-10 16:38] LABS: Alanine Aminotransferase 27 IU/L (<35); Albumin 4.3 g/dL (3.5-5.0); Albumin Globulin Ratio 1.2 (1.0-2.8); Alkaline Phosphatase 117 U/L (38-126); Aspartate Aminotransferase 30 IU/L (14-36); BUN Creatinine Ratio 20.9 (6-22); Bilirubin Total 0.6 mg/dL (0.2-1.3); Blood Urea Nitrogen 14 mg/dL (7-17); Calcium 9.2 mg/dL (8.4-10.2); Carbon Dioxide 27 mmol/L (22-32); Chloride 103 mmol/L (98-107); Creatine Kinase 36 U/L (30-135); Estimated Glomerular Filt Rate > 60 mL/min (>60); Globulin 3.6 g/dL (1.7-4.1); Glucose 150 mg/dL (80-110); HEMOLYSIS < 15 (0-50); Potassium 3.8 mmol/L (3.4-5.1); Sodium 140 mmol/L (137-145); Total Protein 7.9 g/dL (6.3-8.2)
[2023-01-10 16:39] LABS: Lactate (Lactic Acid) 1.1 mmol/L (0.7-2.1)
[2023-01-10 16:50] LABS: Troponin I < 0.012 ng/mL (0.01-0.034)
[2023-01-10 16:51] LABS: UR Morphine/Opiate cutoff 300 Negative (Negative); Ur Creatinine Normal (Normal); Ur Specific Gravity Normal (Normal); Urine Amphetamines Negative (Negative); Urine Barbiturates Negative (Negative); Urine Benzodiazepines Negative (Negative); Urine Cocaine Negative (Negative); Urine MDMA Negative (Negative); Urine Methadone Negative (Negative); Urine Methamphetamines Negative (Negative); Urine Oxycodone Negative (Negative); Urine Phencyclidine Negative (Negative); Urine Tetrahydrocannabinol Negative (Negative); Urine Tricyclic Antidepressant Negative (Negative); Urine pH Normal (Normal)
[2023-01-10 16:57] LABS: NT-proBNP (BNP-Adult 18+) 191 pg/mL (<450)
[2023-01-10] MEDS: ONDANSETRON 4 MG/2 ML INJ IV (16:58)
[2023-01-10 17:43] LABS: Influenza A - CEPHEID Flu A NEGATIVE (NEGATIVE); Influenza B - CEPHEID Flu B NEGATIVE (NEGATIVE); Respiratory Syncytial Virus Negative (Negative)
--- NOTE | 2023-01-10 17:44 | CM.SWNOTE ---
Addendum entered by Missy Haro 01/10/23 17:47: Note continued Patient has [employer] [facility] insurance Patient has hx of Hypertension, CHF, Hyperlipidemia. It is reported that patient resides with daughter and grandson and daughter is primary caregiver but is unable to lift patient due to her medical limitations. It is reported that patient called hospice and patient has hx of waiting for hospice services and requesting hospice. Patient is medically clear for d/c, CERTIFIED ADAPTIVE PHYSICAL EDUCATOR discusses hospice vs. HH with daughter and daughter endorses that patient has hospice appt coming up. CERTIFIED ADAPTIVE PHYSICAL EDUCATOR recommends calling patient's PCP after meeting with hospice and discussing goal of care with patient, if patient's preference is increase mobility then request referral for HH from PCP. Patient ambulates with [facility], CERTIFIED ADAPTIVE PHYSICAL EDUCATOR recommends that daughter seek DME, daughter endorses she plans to go to [facility]. Plan: patient to d/c to home with daughter. Daughter to f/u with hospice vs. HH with patient's PCP. Missy Haro, [facility] Original Note: ED DCP CERTIFIED ADAPTIVE PHYSICAL EDUCATOR Note Patient is 87 y/o female who presents to ED via POV with daughter due to concern for hypertension and concern for stroke. Patient requires assist to get in POV and out of POV from EMS and ED staff upon arrival. Patient's PCP is Dr. Reyes, Patient has [employer]
[2023-01-10 17:46] LABS: COVID-19 CEPHEID 4-PLEX PCR Negative (Negative)
== END 2023-01-10 18:13 | disposition home or self-care (01) ==
PROVIDERS: Emergency Provider Emergency Medicine; PCP Family Medicine
DX: I10 Essential (primary) hypertension (principal); F41.9 Anxiety disorder, unspecified; Z20.822 Contact with and (suspected) exposure to COVID-19
CPT/HCPCS: 0241U; 36415; 70450; 70496; 70498; 71045; 80053; 80305; 81003; 82550; 82962; 83605; 83880; 84484; 85025; 85610; 85730; 93005; 96374; 99284; 99285; J2405; Q9967